=== PATIENT | male | born 1940 | race Caucasian/White ===

== ENCOUNTER 2016-07-09 02:48 | Emergency (ER) | payer MEDICARE, OTHER ==
[~2016-07-09 02:48] MED LIST: ALTACE5 MG; BAYER81 MG; CENTRUM SILVER1 TA; CLARITIN10 MG; COMPAZINE10 M; COMPAZINE10 M PO; COREG12.5 MG; CRANBERRY250 MG; ENABLEX7.5 MG; FISH OIL 500 MG1 CAP; FLOMAX0.4 MG; FLOMAX0.4 MG PO; GLUCOSAMINE/CHO1 T; NEURONTIN100 MG; PEPCID COM1 TAB.CHEW; PEPCID20 MG; PERCOCET 5/3251 TAB PO; PHENERGAN W/CO120 ML; PRILOSEC20 MG; TRICOR145 MG; TYLENOL EXTRA500 MG; VYTORIN 10/20 T1 TAB; [UNRECOGNIZED DRUG - REMARK]
[2016-07-09] MEDS ORDERED: FLOMAX0.4 M1 PO (03:16)
[2016-07-09] MEDS ORDERED: PRINIVIL5 M1 PO (03:17)
[2016-07-09] MEDS ORDERED: PRAVACHOL40 M1 PO (03:18)
[2016-07-09] MEDS ORDERED: ZYRTEC1010 PO (03:21)
[2016-07-09] MEDS ORDERED: CENTRAL VITE F1 EACH PO (03:22)
[2016-07-09 03:23] LABS: BASO % 0.3 % (0-2); EOS % 3.5 % (0-7); EOSINOPHIL ABSOLUTE COUNT 0.2 tho/cmm (0.0-0.7); HCT-HEMATOCRIT 37.6 % (36.0-53.5); HGB-HEMOGLOBIN 12.5 gm/dl (13.5-17.0); IMMATURE GRANULOCYTES ABSOLUTE 0.01 tho/cmm (0-0.03); IMMATURE GRANULOCYTES PERCENT 0.2 % (0-0.3); LYMPH ABSOLUTE COUNT 2.9 tho/cmm (0.8-4.5); MCH (MEAN CORPUSCULAR HGB) 33.9 pg (28.0-32.0); MCHC MEAN CORPUSCULAR HGB CONC 33.2 % (32.0-36.0); MCV (MEAN CELL VOLUME) 101.9 fl (82.0-96.0); MEAN PLATELET VOLUME 10.3 cmc (9.4-12.4); MONO % 7.6 % (0-12); MONOCYTE ABSOLUTE COUNT 0.5 tho/cmm (0.0-1.2); NEUTROPHIL ABSOLUTE COUNT 2.8 tho/cmm (1.6-8.0); NEUTROPHIL-AUTOMATED 2.8 tho/cmm (1.6-8.0); NEUTROPHILS % 43.4 % (40-80); PLATELET COUNT 197 tho/cmm (150-450); RED BLOOD COUNT 3.69 mil/cmm (4.40-5.70); RED CELL DISTRIBUTION WIDTH 12.8 % (12.4-16.4); WHITE BLOOD COUNT 6.5 tho/cmm (4.0-10.0)
[2016-07-09] MEDS ORDERED: NEUPRO1 EAC2 (03:23)
[2016-07-09] MEDS ORDERED: NITROSTAT0.4 MG/TAB SL (03:24)
[2016-07-09] MEDS ORDERED: LORTAB 5-325 M1 EAC1 PO (03:24)
[2016-07-09] MEDS ORDERED: VITAMIN D1000 UNI2 PO (03:24)
[2016-07-09] MEDS ORDERED: KLONOPIN0.5 M1 PO (03:25)
[2016-07-09] MEDS ORDERED: FEOSOL325 M1 PO (03:25)
[2016-07-09] MEDS ORDERED: MIRAPEX0.25 M1 PO (03:26)
[2016-07-09] MEDS ORDERED: COREG6.25 M1 PO (03:26)
[2016-07-09] MEDS ORDERED: LOFIBRA PO (03:26)
[2016-07-09 03:42] LABS: ALBUMIN 3.4 g/dl (3.5-5.0); ALKALINE PHOSPHATASE 46 U/L (33-138); ALT/SGPT 29 U/L (12-78); BILIRUBIN,TOTAL 0.4 mg/dl (0.0-1.5); BLOOD UREA NITROGEN 33 mg/dl (6-24); CALCIUM 8.8 mg/dl (8.5-10.5); CARBON DIOXIDE-VENOUS 25 mmol/L (22-32); CHLORIDE 109 mmol/l (96-110); CREATININE 1.48 mg/dl (0.60-1.30); GLUCOSE 126 mg/dL (70-110); SODIUM 143 mmol/L (135-145); eGFR VALUE FOR BLACK 53 mL/Min
[2016-07-09 03:50] LABS: ANION GAP 13 mmol/L (0-20); AST/SGOT 25 U/L (10-40)
== END 2016-07-09 04:53 | disposition other institution (70) ==
LOC: EDMED 02:48
PROVIDERS: Emergency Medicine
DX: I21.3 ST elevation (STEMI) myocardial infarction of unspecified site (principal); I25.10 Atherosclerotic heart disease of native coronary artery without angina pectoris; I25.2 Old myocardial infarction; I10 Essential (primary) hypertension; Z87.442 Personal history of urinary calculi; Z95.1 Presence of aortocoronary bypass graft; Z95.5 Presence of coronary angioplasty implant and graft; Z95.0 Presence of cardiac pacemaker; Z79.82 Long term (current) use of aspirin; Z79.899 Other long term (current) drug therapy
CPT/HCPCS: C1725; C1769; C1887; C1894; J1644; J2250; J2270; J3010; J7030; Q9967